=== PATIENT | male | born 1970 | race Caucasian/White ===

== ENCOUNTER → 2017-04-17 | Outpatient (CLI) | payer OTHER ==
[~2017-04-17] MED LIST: ALBUTEROL17 GM INH; BENADRYL PO; CLARITIN10 M2 PO; DESYREL150 M1 PO; FLEXERIL10 MG PO; FLONASE 0.05% N16 G1; GABAPENTIN300 MG PO; HYDROCODON-ACE1 EAC7; IBUPROFEN800 MG PO; KEPPRA500 M1 PO; MIRALAX17 GM; NO MEDICATIONS; PERCOCET5/325 PO; PROZAC10 MG PO; SPIRIVA18 MCG INH; SYMBICORT80 INH; VITAMIN B-12250 MCG PO; ZESTRIL10 MG PO
--- NOTE | ~2017-04-17 | MR32 ---
[facility] A Service of [facility] & [facility] RADIOLOGY TEXT RESULTS PATIENT: MINE MERCER [facility] 68 UNIT #: [id number] AGE: [address]: Ezequiel Vasquez MD SEX: M ORDER DR: [id number] [facility] [address]. [place], [place] [address] [id number] O MR#: [id number] Acc #: [id number] NAME: MINE MERCER : 1970 SEX: M STUDY DATE/TIME: 04/17/2017 14:05 UNIT: [facility] ROOM: STUDY DESCRIPTION: MR Cervical Wo Contrast Attending Physician: Ezequiel Vasquez Referring Physician: Ezequiel Vasquez Ordering Physician: Ezequiel Vasquez Primary Care Physician: Jose Vitale Jr., A.P.R.N. MRI CENTER REPORT This report is preliminary unless electronic signature is present. EXAM Cervical spine MRI without HISTORY Spondylosis. Cervical spine surgery April 2016. The patient has a sensation that the neck and fusion cage have been popping for 3 months. No trauma or fall. The left hand is numb. MRI of the cervical spine performed without contrast using routine 1.5T imaging technique. There is a comparison study from 11/04/2015, preoperative. COMMENT There is interval susceptibility seen C5 to C7 consistent with anterior corpectomy and fusion with C6 cage prosthesis and anterior plate from C5 to C7. There is subtle reversal of cervical lordosis at the postoperative levels. This is new from previous. They are not obscured, bone marrow signal intensity is normal. The intervertebral discs are desiccated in general. There is no Chiari-I malformation. On the coronal T2 series partly seen in the upper thoracic spine is levoconvex upper thoracic scoliosis. The cervical cord is normal in size. There is no reproducible focus of cord signal abnormality. One linear area of increased signal intensity is seen within the cord centrally on axial imaging at C5 but this is not reproduced on any of the other sequences and is felt more likely to be an artifact. At C2-3, there is mild left-sided facet degenerative change. There is no canal stenosis. There is mild left sided foraminal narrowing. At C3-4, there is moderate left and mild right side facet degenerative change with a mild broad-based posterior disc protrusion, more prominent to the left side posterolaterally with some uncovertebral osteophyte STS. [facility] A Service of [facility] & [facility] RADIOLOGY TEXT RESULTS PATIENT: MINE MERCER LOCATION: [facility] : [birth year] UNIT #: [id number] AGE: [address]: Ezequiel Vasquez MD SEX: M ORDER DR: natalia. There is mild flattening of the cord anteriorly with mild canal stenosis to the left of midline more prominently and there is severe left and more moderate right-sided foraminal narrowing. Findings progressed from prior. At C4-5, there is facet degenerative change bilaterally, again with fluid in the right-sided facet joint. Facet arthritis is approximately moderate. There is a mild posterior disc bulge and mild cord flattening and canal stenosis. Again, mild progression from prior. There is bilateral uncovertebral osteophyte formation and foraminal narrowing which is fairly severe. At C5-6, there has been interval surgery and there is some metal artifact. There is however improvement in previously noted cord flattening and canal stenosis. There is now only mild effacement of the anterior cord and very mild canal stenosis. There is some bilateral facet degenerative change and foraminal impingement. Foraminal impingement is improved on the right, now moderate. [id number] left-side foraminal narrowing is not changed. At C6-7, there has been interval surgery. The previously noted canal stenosis is resolved. There is only mild effacement of the thecal sac. Also improvement in the right foraminal narrowing but probably no change in left foraminal narrowing which is still fairly severe. At C7-T1, there is broad-based posterior disc protrusion/small extrusion, mildly progressed from prior with mild flattening of the anterior thecal sac. The foraminal impingement is probably not changed, again fairly severe, worse to the left and there is again bilateral facet degenerative change. IMPRESSION 1. Patient has had interval surgery with fusion from C5 to C7 and interval decompression of the canal stenosis previously noted at C5-6 and C6-7. 2. There is now mild reversal of cervical lordosis at the postoperative levels. 3. There is progression of the cervical degenerative disease at the unoperated levels. Please refer to the [id number] description of canal stenosis and foraminal compromise. 4. No convincing evidence for cervical cord signal abnormality. Dictated by... Elsa Servin M.D. THIS IS AN ELECTRONICALLY VERIFIED REPORT Elsa Servin M.D. at 04/19/2017 10:32 AM CLINT/carlitos [facility] A Service of [facility] RADIOLOGY TEXT RESULTS PATIENT: MINE MERCER LOCATION: [facility] : 68 UNIT #: [id number] AGE: [address]: Ezequiel aVsquez MD SEX: M ORDER DR: TD: 04/18/2017 22:09 JOB #: [id number] MRI CENTER REPORT Page 1 of 1 COPY
--- NOTE | ~2017-04-17 | CT57 ---
[facility] A Service of [facility] RADIOLOGY TEXT RESULTS PATIENT: MINE MERCER LOCATION: [facility] : 68 UNIT #: [id number] AGE: [address]: Ezequiel Vasquez MD SEX: M ORDER DR: [id number] [place] [id number] [facility]. [place], [place] [address] [id number] O MR#: [id number] Acc #: [id number] NAME: MINE MERCER : 1970 SEX: M STUDY DATE/TIME: 04/17/2017 15:16 UNIT: [facility] ROOM: STUDY DESCRIPTION: CT Chest Wo Cont Attending Physician: Ezequiel Vasquez M.D. Referring Physician: Ezequiel Vasquez M.D. Ordering Physician: Ezequiel Vasquez M.D. Primary Care Physician: Jose Vitale Jr., A.P.R.N. MEDICAL IMAGING REPORT This report is preliminary unless electronic signature is present EXAM CT chest without contrast INDICATIONS Follow up pulmonary nodule. Chronic shortness of air. PROCEDURE Unenhanced CT of the chest utilizing high-resolution technique. This CT exam was performed with one or more of the following radiation dose reduction techniques: automatic exposure control, adjustment of mA and/or kV according to patient size, and iterative reconstruction. COMPARISON None FINDINGS Paraseptal emphysema and bullous change in the upper lobes, predominately at the apices. There is no suspicious nodule, dense consolidation, pleural fluid, or pneumothorax. No evidence for fibrosis or bronchiectasis. No significant air trapping. No adenopathy. No acute findings in the included upper abdomen. No aggressive appearing bone lesion. IMPRESSION 1. No acute findings. No suspicious pulmonary nodule. If patient has prior imaging elsewhere showing a nodule, comparison with that study would be helpful. 2. Paraseptal emphysema and bullous change in the upper lobes, predominately at the apices. 3. No evidence for appreciable fibrosis. [facility] A Service of [facility] RADIOLOGY TEXT RESULTS PATIENT: MINE MERCER LOCATION: [facility] : 68 UNIT #: [id number] AGE: [address]: Ezequiel Vasquez MD SEX: M ORDER DR: Dictated by... Alexandr Arauz M.D. THIS IS AN ELECTRONICALLY VERIFIED REPORT Alexandr Arauz M.D. at 04/19/2017 2:30 PM DIANE/fercho TD: 04/18/2017 13:14 JOB #: [id number] MEDICAL IMAGING REPORT Page 1 of 1 COPY
== END | disposition home or self-care (01) ==
LOC: CMRI 13:19
DX: M47.12 Other spondylosis with myelopathy, cervical region (principal); M50.23 Other cervical disc displacement, cervicothoracic region; J43.9 Emphysema, unspecified; E53.8 Deficiency of other specified B group vitamins; R91.1 Solitary pulmonary nodule
CPT/HCPCS: 71250; 72141

== ENCOUNTER 2017-06-28 11:06 | Emergency (ER) | payer OTHER ==
[~2017-06-28] VITALS: Ht 177.8 cm; Wt 57.1 kg
[2017-06-28 13:19] LABS: BASOPHIL# 0.1 X10e3 (0-0.3); BASOPHIL% 1.1 % (0-2.5); EOSINOPHIL% 0.7 % (0.0-7.0); HEMATOCRIT 40.6 % (38.0-50.0); HEMOGLOBIN 13.9 gm/dL (13.0-16.0); LYMPHOCYTE# 1.2 X10e3 (1.0-3.5); LYMPHOCYTE% 17.1 % (17.0-45.0); MEAN CELL VOLUME 100.5 FL (83-96); MEAN CORPUSCULAR HEMOGLOBIN 34.3 PG (28-34); MEAN CORPUSCULAR HGB CONC 34.2 g/dL (30-36); MEAN PLATELET VOLUME 6.4 FL (6.5-11.5); MONOCYTE# 0.7 X10e3 (0-1.0); MONOCYTE% 9.4 % (3.0-12.0); NEUTROPHIL% 71.7 % (40-75); PLATELET COUNT 335 X10e3 (140-420); RED BLOOD COUNT 4.04 X10e (3.90-5.60); RED CELL DISTRIBUTION WIDTH 13.7 % (11.0-15.5)
[2017-06-28 13:20] LABS: DIFF IND NO
[2017-06-28 13:48] LABS: CREATININE SERUM 0.5 mg/dL (0.6-1.4); GLOM FILT RATE Estimated 128.2 mL/min (>60); POTASSIUM 4.1 mmol/L (3.5-5.1)
== END 2017-06-28 14:50 | disposition home or self-care (01) ==
LOC: CED 11:06
DX: R79.9 Abnormal finding of blood chemistry, unspecified (principal); J44.9 Chronic obstructive pulmonary disease, unspecified
CPT/HCPCS: 80048; 85025; 99283